=== PATIENT | female | born 1985 | race Caucasian/White ===

== ENCOUNTER → 2017-08-17 14:00 | Outpatient (CLI) | payer OTHER, SELFPAY ==
[2017-08-17 16:12] LABS: Group B Strep DNA By PCR Negative (Negative); Internal Control PASS; Probe Check PASS; Specimen Processing Control PASS
== END ==
PROVIDERS: Visit Provider Obstetrics & Gynecology
DX: Z34.90 Encounter for supervision of normal pregnancy, unspecified, unspecified trimester (principal)
CPT/HCPCS: 87081; 87653

== ENCOUNTER 2017-08-22 15:45 | Inpatient (IN) | payer OTHER, SELFPAY ==
[2017-08-22] MEDS: Lactated Ringers 1,000 ML 50 ML IV (15:45)
[2017-08-22 15:54] VITALS: BMI 30.4
[2017-08-22] MEDS: Oxytocin 30 units/NS 500 ml 30 UNITS/500 ML IV.SOLN 334 UNITS IV (16:18)
[2017-08-22 16:19] LABS: Hemoglobin 11.2 g/dl (12.0-15.0); Mean Corp Hgb Conc 33.9 g/gl (32-36); Mean Corpuscular Hgb 30.4 pg (27.0-32.0); Mean Corpuscular Volume 89.4 fL (81-99); Mean Platelet Vol. 12.2 fl (6.2-12.0); Platelet Count 224 K/mm3 (150-450); RBC Distribution Width CV 14.1 % (11.6-14.6); RBC Distribution Width SD 44.6 fl (35.1-43.9); Red Blood Count 3.69 M/mm3 (4.2-5.4); White Blood Count 15.5 K/mm3 (4.4-11.0)
[2017-08-22 16:24] LABS: Scan Indicated on CBC? Y/N NO
--- NOTE | 2017-08-22 16:30 | PLAC_PTH ---
PATIENT: STAR BLANKENSHIP LOC: [facility] U#:[id number] AGE/SX: 32/F ROOM: WP010 RE08/22/[address]: Dr. Lucía Garibay MD : [id number] BED: 1 DIS: 08/24/2017 SPEC #: [id number] RECD: 08/22/17 20:23 STATUS: KELBY REMoo #: [id number] LAITH: 08/22/17 16:[address]: Lucía Garibay DEPT: SURGICAL PATHOLOGY RECD BY: Wenceslao Dotson ENTERED: 08/23/17 11:14 SP TYPE: PLACENTA OTHR DR: No Primary Care Phys Tissues: Placenta, NOS Procedures: Surgery Specimen Level V HEADER OPERATION: Vaginal delivery PRE-OP DIAGNOSIS: Abruption TISSUE SUBMITTED: Placenta MICROSCOPIC DIAGNOSIS Placenta: Placental disc - third trimester placenta (839 gm). - Focal area of infarction. - Focal area of intraparenchymal hemorrhage. Membranes - no pathologic diagnosis. Umbilical cord - three blood vessels and focal minimal acute inflammation. Separate blood clots (measuring 10 x 7 x 2 cm), clinically abruption. SJ:lilly 08/25/17 MICROSCOPIC DESCRIPTION Slides are reviewed. GROSS DESCRIPTION SPECIMEN: PLACENTA / CLINICAL INFORMATION: A. Weight: 3.842 kg B. Gestational Age: 37 weeks C. Sex: Male PLACENTAL WEIGHT (POST FIXATION): 839 gm PLACENTAL DIMENSIONS: 19 x 17 x 3.5 cm PLACENTAL SHAPE: Usual ovoid PLACENTAL WEIGHT FOR GESTATIONAL AGE: Over 99th percentile MEMBRANES - Present A. Insertion: Marginal B. Site of rupture from edge: 4 cm from edge of placental disc C. Color of membrane: Klein-santa D. Abnormalities: None UMBILICAL CORD - Present A. Color: Klein-santa B. Insertion: Central C. Length: 38 cm D. Diameter: 1.5 cm E. Number of vessels: Three F. Abnormalities: None PLACENTAL DISC - Present A. Color of surface: Klein-santa B. surface abnormalities: None C. Maternal cotyledons: Intact with minimal tears D. Attached retro placental clot: No clot E. Cut surface: Dark red and spongy F. Lesions: Sections reveal two firm, klein-white lesions ranging in size from 1.5 to 3.2 cm in greatest dimension. The larger of the two lesions is present at the periphery of the placental disc. G. Separate clot: Also present in the specimen container is a clotted blood measuring 10 x 7 x 2 cm. SECTIONS SUBMITTED: 1. Membrane roll and umbilical cord ( end notched) 2. Placental disc, and maternal surfaces, lesion 3. Placental disc, and maternal surfaces, lesion 4. Placental disc, and maternal surfaces 5. Placental disc, and maternal surfaces AM:lilly 08/24/17 TC:5 CPT: 05849
[2017-08-22 20:45] VITALS: BP 117/69; PULSE 79; RESP 18; TEMP 36.7; O2SAT 97
--- NOTE | 2017-08-22 21:30 | PCM.HP.OB ---
- Problem List (1) heart rate decelerations affecting management of mother Status: Acute (2) Placental abruption in third trimester Status: Acute (3) Active labor at term Status: Acute History Date of Admission: 08/22/17 Final FAISAL: 09/08/17 Gestational age: 37 Weeks and 4 Days History of this : 32 yo @ 37w4d presents IAL at 6 cm dilation with vaginal bleeding and proceeds to deliver precipitously. she has had an uncomplicated other than mild anemia Pertinent Past Medical History: pmh: negative PSH: wisdom teeth ob history 2 previous term vaginal deliveries Allergies No Known Allergies Allergy (Verified 08/17/17 12:02) Current Medications Acetaminophen (Tylenol) 1,000 mg PO Q8H PRN PRN PRN Reason: MILD PAIN (1-3/10)/Temp>99.6F Bisacodyl (Dulcolax) 10 mg RECTAL UD PRN PRN Reason: If no BM Dibucaine (Dibucaine) 1 applic TOPICAL TID PRN PRN; Protocol PRN Reason: Discomfort Hydrocortisone (Hytone) 1 applic TOPICAL TID PRN PRN; Protocol PRN Reason: Discomfort Lactated Ringer's () 1,000 mls @ 0 mls/hr IV .Q0M PERI PRN Reason: KVO Influenza Virus Vaccine Quadrival (Fluarix/Fluzone) 0.5 ml IM .ONCE ONE Stop: 08/23/17 10:01 Methylergonovine Maleate (Methergine) 0.2 mg IM X1 PRN PRN Reason: Excess bleeding/uterine atony Naproxen (Naprosyn) 250 - 500 mg PO Q8H PRN PRN PRN Reason: MILD PAIN (1-3/10) Ondansetron HCl (Zofran) 4 mg IV Q4H PRN PRN PRN Reason: Nausea Oxycodone HCl (Oxyir) 5 - 10 mg PO Q4H PRN PRN PRN Reason: MOD-SEVERE PAIN (4-10/10) Promethazine HCl (Phenergan (Ll)) 12.5 mg IV Q4H PRN PRN PRN Reason: NAUSEA/VOMITING Senna/Docusate Sodium (Senokot-S, Floresita-Colace) 1 - 2 tablet PO DAILY PRN PRN PRN Reason: Constipation Simethicone (Mylicon) 80 mg PO PCHS PRN PRN Reason: Indigestion/Stomach pain Sodium Chloride () 5 - 15 ml IV UD PRN PRN Reason: SALINE FLUSH Smoking Status: Former smoker Alcohol: None Drug Use: none Number of Fetus(es): 1 - fhts 130s min variability recurrent late decels and prolonged bradycardia into 60s Review of Systems Constitutional: Denies: Chills, Fever, Weight Change HEENT: Denies: Head Aches, Sinus Congestion, Sinus Drainage Cardiovascular: Denies: Chest Pain, Palpitations Respiratory: Denies: Cough, Shortness of breath at rest, Sputum production Gastrointestinal: Reports: Abdominal Pain Gynecological: Reports: Vaginal bleeding. Denies: Vaginal discharge Physical Exam General: Alert, Oriented x3, No apparent distress Cardiovascular: Tachycardic Lungs: Normal air movement Abdomen: Soft, Non Tender, Gravid Extremities:: No edema Estimated gestational size: Appropriate for gestational size Presentation: Cephalic Cervix Dilation (cm): 6 Assessment/Plan Active and Suspected Problems (Last Reviewed 08/17/17 @ 12:03 by Mireya Gallagher) heart rate decelerations affecting management of mother (Acute) Placental abruption in third trimester (Acute) Active labor at term (Acute) patient presented IAL with non reassuring heart pattern- immediately taken to OR and while prepping for a possible emergency c section water was artifically ruptured and patient proceeded to complete, vacuum applied, episiotomy cut and head delivered atraumatically without complication. apgars 7 and 9. cord pH 7.19 with BE -6.
[2017-08-22] MEDS: Naproxen 250 MG Tablet PO (21:44)
--- NOTE | 2017-08-22 21:49 | PCM.OB.VAG ---
- Problem List (1) heart rate decelerations affecting management of mother Status: Acute (2) Placental abruption in third trimester Status: Acute (3) Active labor at term Status: Acute Vaginal Delivery Maternal Presentation: Active Labor 32-year-old at 37 weeks 4 days presents in active labor with an acute placental abruption. Medical Reason for Induction: Abruption Amniotic Membrane Rupture Type: Artificial Amniotic Fluid Description: Bloody Final FAISAL: 09/08/17 Gestational age: 37 Weeks and 4 Days Date of Procedure: 08/22/17 Pre-Operative Diagnosis: In active labor precipitous delivery abruption Post-Operative Diagnosis: Same Surgery/ Procedure Performed: Vacuum Assisted Vaginal Delivery Type of Anesthesia: Local with 1% lidocaine Description of Procedure: Patient presented in active labor at 6 cm of dilation and she was placed in the monitor and noted to have recurrent late decelerations with absent variability. Patient was immediately taken back to the operating room and began set up for a . Patient was reexamined and water was broken and after having the patient bear down and pushing the cervix back she was found to be completely dilated. A vacuum was applied at the +2 station and patient began pushing vacuum was applied for 2 applications with 1 pop off a right mediolateral episiotomy was cut and the head was delivered atraumatically with aid of the Kiwi vacuum. The anterior posterior shoulders were delivered and the cord was clamped and cut and the infant was handed off to waiting nurse. Apgars were 7 and 9 with a cord pH of 7.19. Local anesthesia was used to numb up around the episiotomy site which was repaired in the usual fashion and noted to be a second-degree perineal laceration. EBL 300 cc. Patient tolerated the delivery well. Placenta delivered spontaneously immediately following was noted to have a significant abruption taking up approximately 20% with a 200 cc dark adherent clot and dark blood seen Presentation: ALBERTO Placental Delivery Description: Spontaneous Placenta Disposition: [facility] Percentage of Placenta Abruption: 20 Cord Vessel Description: 3 Vessels Cord Gases drawn per routine: ABG, VBG Cord Entanglement: None Estimated Blood Loss: 300 Infant A gender: Male (1 minute): 7 (5 minute): 9 Episiotomy Description: Right Mediolateral, Perineal Extension/lac, 2nd degree Medications given after delivery: IV Pitocin Complications: - - abruption
--- NOTE | 2017-08-22 21:54 | OP.PCM_ITS ---
- Problem List (1) heart rate decelerations affecting management of mother Status: Acute (2) Placental abruption in third trimester Status: Acute (3) Active labor at term Status: Acute Vaginal Delivery Maternal Presentation: Active Labor 32-year-old at 37 weeks 4 days presents in active labor with an acute placental abruption. Medical Reason for Induction: Abruption Amniotic Membrane Rupture Type: Artificial Amniotic Fluid Description: Bloody Final FAISAL: 09/08/17 Gestational age: 37 Weeks and 4 Days Date of Procedure: 08/22/17 Pre-Operative Diagnosis: In active labor precipitous delivery abruption Post-Operative Diagnosis: Same Surgery/ Procedure Performed: Vacuum Assisted Vaginal Delivery Type of Anesthesia: Local with 1% lidocaine Description of Procedure: Patient presented in active labor at 6 cm of dilation and she was placed in the monitor and noted to have recurrent late decelerations with absent variability. Patient was immediately taken back to the operating room and began set up for a . Patient was reexamined and water was broken and after having the patient bear down and pushing the cervix back she was found to be completely dilated. A vacuum was applied at the +2 station and patient began pushing vacuum was applied for 2 applications with 1 pop off a right mediolateral episiotomy was cut and the head was delivered atraumatically with aid of the Kiwi vacuum. The anterior posterior shoulders were delivered and the cord was clamped and cut and the infant was handed off to waiting nurse. Apgars were 7 and 9 with a cord pH of 7.19. Local anesthesia was used to numb up around the episiotomy site which was repaired in the usual fashion and noted to be a second -degree perineal laceration. EBL 300 cc. Patient tolerated the delivery well. Placenta delivered spontaneously immediately following was noted to have a significant abruption taking up approximately 20% with a 200 cc dark adherent clot and dark blood seen Presentation: ALBERTO Placental Delivery Description: Spontaneous Placenta Disposition: [facility] Percentage of Placenta Abruption: 20 Cord Vessel Description: 3 Vessels Cord Gases drawn per routine: ABG, VBG Cord Entanglement: None Estimated Blood Loss: 300 A gender: Male (1 minute): 7 (5 minute): 9 Episiotomy Description: Right Mediolateral, Perineal Extension/lac, 2nd degree Medications given after delivery: IV Pitocin Complications: - - abruption
[2017-08-23] VITALS (14 sets, daily range): BP systolic 105–124; BP diastolic 53–78; PULSE 46–85; RESP 16–18; TEMP 36.1–37.2; O2SAT 94–100; BMI 30.4
[2017-08-23] MEDS: oxyCODONE 5 MG Tablet PO ×4 (00:12→23:41)
--- NOTE | 2017-08-23 09:44 | PN.OBGYN_ITS ---
Patient Problems: Active and Suspected Problems (Last Reviewed 08/17/17 @ 12:03 by Mireya Gallagher) heart rate decelerations affecting management of mother (Acute) Placental abruption in third trimester (Acute) Active labor at term (Acute) Subjective: Doing well. Denies SOB, chest pain NV. Voiding well. - Physical Exam General: Alert, Oriented x3 Abdomen: Soft, Non Tender, - - FF below U Vital Signs Temp Pulse Resp BP Pulse Ox 97.3 F L 85 18 110/53 L 97 08/23/17 05:41 08/23/17 05:41 08/23/17 05:41 08/23/17 05:41 08/22/17 20:45 Oxygen Delivery Method Room Air Weight: 194 lb 3.636 oz Body Mass Index (BMI) 30.4 Intake and Output for Last 24 Hours 08/21/17 08/22/17 08/23/17 23:59 23:59 23:59 Output Total 200 / 200 Balance -200 / -200 Laboratory Tests Past 24 Hrs 08/22/17 08/22/17 15:50 15:50 WBC 15.5 H RBC 3.69 L Hgb 11.2 L Hct 33.0 L MCV 89.4 MCH 30.4 MCHC 33.9 RDW 14.1 RDW Differential 44.6 H Plt Count 224 MPV 12.2 H Blood Type B POSITIVE Antibody Screen NEGATIVE Medical Necessity - Tobacco Use Smoking Status: Former smoker Assessment/Plan Active and Suspected Problems (Last Reviewed 08/17/17 @ 12:03 by Mireya Gallagher) heart rate decelerations affecting management of mother (Acute) Placental abruption in third trimester (Acute) Active labor at term (Acute) . NPO at 0830 for tubal ligation at [address] Garibay- patient wishes to proceed. Routine care.
[2017-08-23 10:41] LABS: Amphetamine Urine VISTA NEGATIVE (<1000 ng/mL); Barbiturate Urine VISTA NEGATIVE (< 200 ng/mL); Benzodiazepine Urine VISTA NEGATIVE (< 200 ng/mL); Cocaine Urine VISTA NEGATIVE (< 300 ng/mL); Ecstacy Urine VISTA NEGATIVE (< 500 ng/mL); Methadone Urine VISTA NEGATIVE (< 300 ng/mL); PCP Urine VISTA NEGATIVE (< 25 ng/mL); THC Urine VISTA POSITIVE (< 50 ng/mL); Vista UDS pH Range 6
[2017-08-23] MEDS: 0.9% Saline Lock 10 ML Syringe IV (15:34)
--- NOTE | 2017-08-23 18:11 | PCM.OPRPT ---
Problem List (1) heart rate decelerations affecting management of mother Status: Acute (2) Placental abruption in third trimester Status: Acute (3) Active labor at term Status: Acute Report of Operation Date of Procedure: 08/22/17 Pre-Operative Diagnosis: sterilization Post-Operative Diagnosis: same Surgery/Procedure Performed:: tubal ligation Type of Anesthesia:: Spinal Specimen's removed: none Estimated Blood Loss (mL): 50 Fluids Replaced: crystalloid Description of Procedure: Patient was taken to the operating room and spinal anesthesia was placed and found to be adequate. Patient was placed in the dorsal supine position was prepped and draped in normal sterile fashion. Savage catheter was used to drain the bladder. Infra umbilical incision was made with a scalpel and carried through the unknowingly of the fascia with a scalpel fascia was extended bilaterally with Haynes scissors and bowel packed away and the right fallopian tube identified confirmed to be fallopian tube by following it out to the fimbria and a Filshie clip was applied in the mid interstitial portion of the fallopian tube noting to completely transect the tube. This was repeated on the left side where the tube was identified and followed out to the fimbria and confirmed to be fallopian tube and then the mid interstitial portion of the tube was completely transected with the Filshie clip. Excellent hemostasis was noted. Fascia was closed with 0 Vicryl and skin closed with 3-0 Monocryl. No complications. Patient was taken recovery in stable condition. Grafts/Implants Used: filshie clips - Complications none - Admit VTE Documentation VTE Present on Admission: No VTE Mechan Device Prophylaxis: SCD's
[2017-08-23] MEDS: Naproxen 250 MG Tablet PO (23:40)
[2017-08-24 02:00] VITALS: PULSE 54; RESP 15; TEMP 36.6
[2017-08-24] MEDS: oxyCODONE 5 MG Tablet PO ×2 (06:27→11:03)
[2017-08-24] MEDS: Senna/Docusate Sodium 1 Tablet PO (09:18)
[2017-08-24] MEDS: Naproxen 250 MG Tablet PO (09:19)
[2017-08-24 09:20] VITALS: BP 111/60; PULSE 61; RESP 16; TEMP 36.8; O2SAT 98
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
[2017-08-24 15:24] VITALS: BP 112/56; PULSE 59; RESP 18; TEMP 36.6; O2SAT 98
--- NOTE | 2017-08-24 15:31 | NURSING ---
mother being discharged to hotel status and flu shot given prior to discharge
[2017-08-24 16:00] VITALS: BP 112/56; PULSE 59; RESP 20; TEMP 36.6; O2SAT 98
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
--- NOTE | 2017-08-24 16:09 | PCM.DCVAG ---
Discharge Diet: No Restrictions Discharge Activity: Return to Normal Activity, May not drive while taking narcotic pain medications., May Shower May resume sexual activity in: 4-6 weeks Call your doctor if your incision/area has: Continuous Slow Oozing, Sudden Increased Bleeding, Increased Pain/ Swelling, Increased Redness, Foul Smelling Discharge Additional Instructions: If you experience any of the following, contact your healthcare provider. Bleeding that soaks a pad every hour for 2 hours Fever 100.4 or higher Unrelieved incision or abdominal pain Swelling, redness, discharge or bleeding from your incision or episiotomy site Your incision begins to separate Problems urinating (including inability to urinate or burning while urinating). Visual changes Severe headache Flu-like symptoms Pain or redness in one of both of your breasts Pain, warmth, tenderness or swelling in your legs, especially the calf area Frequent nausea and vomiting Symptoms of depression or anxiety If you experience any of the following, call 911 or go to the nearest Emergency Room. Chest pain Problems breathing Seizure activity Partial or complete paralysis of a body part, slurred speech, weakness or drooping of the face, or a sudden inability to walk or hold your balance Allergies/Adverse Reactions: Allergies No Known Allergies Allergy (Verified 08/17/17 12:02) Medications to take at Discharge vitamin,calcium,nihsiell-gngc-vbslk acid tablet 1 tab PO QDAY 06/07/17 Naproxen [Naprosyn] 250 - 500 mg PO Q8H PRN PRN #30 tab 08/24/17 Oxycodone HCl/Acetaminophen [Percocet 5-325] 1 - 2 tablet PO Q4H PRN PRN 3 Days #15 tablet 08/24/17 The following prescriptions were given: Oxycodone HCl/Acetaminophen [Percocet 5-325] 1 - 2 tablet PO Q4H PRN PRN 3 Days #15 tablet PRN Reason: Pain Naproxen [Naprosyn] 250 - 500 mg PO Q8H PRN PRN #30 tab PRN Reason: MILD PAIN Please Follow Up With: Lucía Garibay MD - [phone] When: Call to make an appointment with your doctor in 6 weeks. If you had elevated Blood pressure or 4th degree laceration you will need to be seen in 2 weeks. Primary Care Physician: Care Physician,No Primary [Primary Care Provider] -
--- NOTE | 2017-08-24 16:10 | DCINST_ITS ---
Discharge Diet: No Restrictions Discharge Activity: Return to Normal Activity, May not drive while taking narcotic pain medications., May Shower May resume sexual activity in: 4-6 weeks Call your doctor if your incision/area has: Continuous Slow Oozing, Sudden Increased Bleeding, Increased Pain/ Swelling, Increased Redness, Foul Smelling Discharge Additional Instructions: If you experience any of the following, contact your healthcare provider. * Bleeding that soaks a pad every hour for 2 hours * Fever 100.4 or higher * Unrelieved incision or abdominal pain * Swelling, redness, discharge or bleeding from your incision or episiotomy site * Your incision begins to separate * Problems urinating (including inability to urinate or burning while urinating) . * Visual changes * Severe headache * Flu-like symptoms * Pain or redness in one of both of your breasts * Pain, warmth, tenderness or swelling in your legs, especially the calf area * Frequent nausea and vomiting * Symptoms of depression or anxiety If you experience any of the following, call 911 or go to the nearest Emergency Room. * Chest pain * Problems breathing * Seizure activity * Partial or complete paralysis of a body part, slurred speech, weakness or drooping of the face, or a sudden inability to walk or hold your balance Allergies/Adverse Reactions: Allergies No Known Allergies Allergy (Verified 08/17/17 12:02) Medications to take at Discharge vitamin,calcium,sekfwpbx-wctx-ckxmc acid tablet 1 tab PO QDAY 06/07/17 Naproxen [Naprosyn] 250 - 500 mg PO Q8H PRN PRN #30 tab 08/24/17 Oxycodone HCl/Acetaminophen [Percocet 5-325] 1 - 2 tablet PO Q4H PRN PRN 3 Days #15 tablet 08/24/17 The following prescriptions were given: Oxycodone HCl/Acetaminophen [Percocet 5-325] 1 - 2 tablet PO Q4H PRN PRN 3 Days #15 tablet PRN Reason: Pain Naproxen [Naprosyn] 250 - 500 mg PO Q8H PRN PRN #30 tab PRN Reason: MILD PAIN Please Follow Up With: Lucía Garibay MD - [phone] When: Call to make an appointment with your doctor in 6 weeks. If you had elevated Blood pressure or 4th degree laceration you will need to be seen in 2 weeks. Primary Care Physician: Care Physician,No Primary [Primary Care Provider] -
--- NOTE | 2017-08-24 16:10 | PCM.PN.OB ---
Patient Problems: Active and Suspected Problems (Last Reviewed 08/17/17 @ 12:03 by Mireya Gallagher) heart rate decelerations affecting management of mother (Acute) Placental abruption in third trimester (Acute) Active labor at term (Acute) Subjective: doing well no complaints - Physical Exam General: Alert, Oriented x3 Vital Signs Temp Pulse Resp BP Pulse Ox 97.8 F 59 L 20 H 112/56 L 98 08/24/17 16:00 08/24/17 16:00 08/24/17 16:00 08/24/17 16:00 08/24/17 16:00 Oxygen Delivery Method Room Air Weight: 194 lb 0.108 oz Body Mass Index (BMI) 30.4 Intake and Output for Last 24 Hours 08/22/17 08/23/17 08/24/17 23:59 23:59 23:59 Intake Total 900 / 900 Output Total 200 / 200 75 / 75 Balance -200 / -200 825 / 825 Medical Necessity - Tobacco Use Smoking Status: Former smoker Assessment/Plan Active and Suspected Problems (Last Reviewed 08/17/17 @ 12:03 by Mireya Gallagher) heart rate decelerations affecting management of mother (Acute) Placental abruption in third trimester (Acute) Active labor at term (Acute) patient presented IAL with non reassuring heart pattern- immediately taken to OR and while prepping for a possible emergency c section water was artifically ruptured and patient proceeded to complete, vacuum applied, episiotomy cut and head delivered atraumatically without complication. apgars 7 and 9. cord pH 7.19 with BE -6.
--- NOTE | 2017-08-25 16:00 | CASEMGMT ---
Social Work - Labor and Delivery Unit Patient/mother of baby (MOB) was discharged on 08-24-17. Baby remains in the hospital on ALIE scoring. Followed up with MOB today for support and resource information. Met with MOB in room. MOB holding baby, smiling, appearing relaxed, and calm. MOB attentive to infant, gentle, and reports to feel that MOBs presence at hospital is helping the baby stay calm. machine operator farmworker reviewed local resources with MOB, which may be helpful for parents, including local mental health resources. MOB expressed much appreciation for information and time spent with MOB today. Talked with MOB about ways to ways to communicate to others when upset. During conversation today, MOB again talkative, rambling though less intense as previous days conversation. MOB voiced knowledge that talking a lot, and may be starved for adult conversation. MOB talked about children, , and even relationship with FOB. MOB reports FOB has been helpful since MOB has been in the hospital, cleaning the house and sending MOB supportive texts. Today MOB reporting positivity about relationship with FOB, and hope that if FOB continues in current manner that things will go well in the intermodal dispatcher. Emotional support offered. Provided MOB: List of manager social work agencies in [facility] Handouts on Help Me Grow, Moms support group, shaken baby/tips to soothe infant, and safe sleeping Packet on depression, including online supports for such Listing of counselors as well as brochure on [facility] program Note: Received call from Annalise cMgee at [facility] ([facility]) at [phone], extension [phone]. Provided Annalise update on mom and baby. Clarified information from initial referral. Plan: MOB is discharged, resource information given to MOB for home going purposes. Social work will continue to follow baby during hospital stay. [facility] will be following this family in the community. MOB agrees to [facility] referral MOB reports intent to follow up with psychiatrist on 08-30-17, Dr. Waters at [facility] [place], [place]
== END 2017-08-24 16:10 | disposition home or self-care (01) | DRG 774 ==
LOC: WP 15:52
PROVIDERS: Admitting Provider Obstetrics & Gynecology; Visit Provider Obstetrics & Gynecology
PROC: 0UL70ZZ Occlusion of Bilateral Fallopian Tubes, Open Approach (ICD-10-PCS; principal; 2017-08-23 16:05)
DX: O76 Abnormality in fetal heart rate and rhythm complicating labor and delivery (principal); O45.93 Premature separation of placenta, unspecified, third trimester; O70.1 Second degree perineal laceration during delivery; Z30.2 Encounter for sterilization; Z3A.37 37 weeks gestation of pregnancy; Z37.0 Single live birth; Z87.891 Personal history of nicotine dependence
CPT/HCPCS: 59050; 80307; 85027; 86850; 86900; 88307; 99218; J7120; 90686; A4216; G0378; J2405